=== PATIENT | female | born 1980 | race Two or more races ===

== ENCOUNTER 2018-01-20 13:36 | Emergency (ER) | payer OTHER ==
[~2018-01-20] VITALS: Ht 160 cm; Wt 92.4 kg
[2018-01-20 13:55] VITALS: BP 134/95
[2018-01-20] MEDS ORDERED: SILVER SULF. CRM 1% , 25GM ONE (14:06)
[2018-01-20] MEDS ORDERED: DIPH,PERTUSS(ACELL),TET VAC/PF 0.5 ML IM-VACC ONE ×2 (14:06→14:30)
[2018-01-20] MEDS ORDERED: KETOROLAC 30 MG/1 ML ONE (14:17)
[2018-01-20] MEDS ORDERED: KETOROLAC 30 MG/1 ML IM ONE (14:30)
[2018-01-20] MEDS ORDERED: SILVER SULF. CRM 1% , 25GM TP ONE (14:30)
== END 2018-01-20 14:53 ==
LOC: ED 14:30
DX: T23.211A Burn of second degree of right thumb (nail), initial encounter (principal); T31.0 Burns involving less than 10% of body surface; X18.XXXA Contact with other hot metals, initial encounter; Y93.89 Activity, other specified; Y92.009 Unspecified place in unspecified non-institutional (private) residence as the place of occurrence of the external cause; Y99.8 Other external cause status
CPT/HCPCS: 16020; 90471; 90715; 96372; 99284; J1885